=== PATIENT | male | born 1955 | race Caucasian/White ===

== ENCOUNTER 2018-10-14 08:02 | Day surgery (SDC) | payer OTHER ==
--- NOTE | 2018-10-14 10:31 | NUR ---
"DAY SURGERY RN | ADMIT Report from Mackenzie MALLORY. VSS. A/O. Denies pain and nausea. No issues at this time."
--- NOTE | 2018-10-14 11:05 | NUR ---
DAY SURGERY RN | CALL FROM SHANICE Mann NP called this RN and stated that after reviewing the patient chart, the patient was found to "have a small pneumothorax". She stated to this RN that patient will need an xray in "45 minutes or so" and that she would put in an order. No change in patient condition. VSS. A/O. Site is C/D/I.
--- NOTE | 2018-10-14 11:42 | NUR ---
"DAY SURGERY RN | Patient to Xray Discharge instructions given to patient. Xray came to get patient for follow-up xray. VSS. A/O. Site C/D/I. Denies pain and nausea."
--- NOTE | 2018-10-14 11:53 | NUR ---
"DAY SURGERY | DISCHARGE machine maintenance technician stated they discharged the patient to home at this time."
== END 2018-10-14 22:45 | disposition home or self-care (01) ==
LOC: CT 08:02
DX: C34.92 Malignant neoplasm of unspecified part of left bronchus or lung (principal); F17.200 Nicotine dependence, unspecified, uncomplicated
CPT/HCPCS: 32405; 71045; 77012; 88305

== ENCOUNTER 2019-06-26 06:08 | Day surgery (SDC) | payer OTHER ==
[~2019-06-26] VITALS: Ht 182.9 cm; Wt 63.7 kg
[~2019-06-26 06:08] MED LIST: ASPI81CH PO; B Complex-Foli1 EACH PO; VITAMIN D35000 UNIT PO
--- NOTE | 2019-06-26 06:40 | NUR ---
PT ADMITTED TO [facility]. AGREES WITH PLANNED SURGERY. LUNG SOUNDS DIMINSHED WITH FAINT EXPIRATORY WHEEZES ON LEFT.
--- NOTE | 2019-06-26 08:10 | NUR ---
06/26/19 0810 Nam Fry PROCEDURE CHANGED TO ANOSCOPE DUE TO RECTAL PROLAPSE, NO ANTIBIOTICS NEEDED
--- NOTE | 2019-06-26 09:57 | NUR ---
Discharge instructions reviewed with patient. Patient verbalizes understanding. Copy given to patient to take home. Patient States Post-Procedure ride home has been arranged.
== END 2019-06-26 11:44 | disposition home or self-care (01) ==
LOC: ORSCMMR 06:08 → ORD 07:30 → ORSCMMR 09:25
PROVIDERS: Surgery
PROC: 0DJD8ZZ Inspection of Lower Intestinal Tract, Via Natural or Artificial Opening Endoscopic (ICD-10-PCS; principal; 2019-06-26 07:30)
DX: K64.2 Third degree hemorrhoids (principal); K62.3 Rectal prolapse; J44.9 Chronic obstructive pulmonary disease, unspecified; E78.5 Hyperlipidemia, unspecified; F17.210 Nicotine dependence, cigarettes, uncomplicated; Z79.82 Long term (current) use of aspirin
CPT/HCPCS: J1100; J2250; J2405; J2704; J2710; J3010; J7120

== ENCOUNTER → 2023-07-03 | Outpatient (CLI) | payer OTHER ==
[2023-07-03 13:27] LABS: Creatinine, Urine Random 60.8 mg/dL (27.00-270.00)
[2023-07-03 13:29] LABS: Microalb/Creat Ratio UR, Rand 29.605 mg/g (0.000-30.000)
== END | disposition home or self-care (01) ==
LOC: LAB 06:30 → LAB SHORT 06:30
PROVIDERS: Family Medicine
DX: I10 Essential (primary) hypertension (principal)
CPT/HCPCS: 82043; 82570

== ENCOUNTER 2023-09-09 09:49 | Observation (INO) | payer OTHER ==
[~2023-09-09] VITALS: Ht 182.9 cm; Wt 57.1 kg
[2023-09-09 10:31] LABS: BASOPHILS ABSOLUTE AUTO 0.03 K/mm3 (0.00-0.23); BASOPHILS PERCENT AUTO 1 % (0-2); EOSINOPHILS ABSOLUTE AUTO 0.01 K/mm3 (0.00-0.68); EOSINOPHILS PERCENT AUTO 0 % (0-6); Hematocrit 44.6 % (37.0-53.0); Hemoglobin 15.2 g/dL (13.5-17.5); IMMATURE GRAN ABSOLUTE AUTO 0.02 K/mm3 (0.00-0.10); IMMATURE GRAN PERCENT AUTO 0 % (0-1); LYMPHOCYTES ABSOLUTE AUTO 0.75 K/mm3 (0.84-5.20); LYMPHOCYTES PERCENT AUTO 13 % (21-46); MONOCYTES ABSOLUTE AUTO 0.48 K/mm3 (0.16-1.47); MONOCYTES PERCENT AUTO 8 % (4-13); Mean Corpuscular HGB 32.1 pg (26.0-34.0); Mean Corpuscular HGB Conc 34.1 g/dL (31.5-36.5); Mean Corpuscular Volume 94 fL (80-100); Mean Platelet Volume 9.4 fL (9.1-12.4); NEUTROPHILS ABSOLUTE AUTO 4.73 K/mm3 (1.96-9.15); NEUTROPHILS PERCENT AUTO 79 % (41-73); Platelet Count 319 K/mm3 (150-400); RDW Coefficient Variation 13.5 % (11.7-14.2); RDW Standard Deviation 47.4 fL (35.1-46.3); Red Blood Cell Count 4.74 M/mm3 (4.30-5.90); White Blood Cell Count 6.02 K/mm3 (4.00-11.30)
[2023-09-09 10:50] LABS: Albumin, Blood 3.9 g/dL (3.4-5.0); Albumin/Globulin Ratio 1.1 (0.8-1.8); Bilirubin, Total 0.5 mg/dL (0.1-1.0); Calcium, Blood 9.1 mg/dL (8.5-10.1); Globulin, Blood 3.6 g/dL (2.2-4.0); Potassium, Blood 3.9 mmol/L (3.5-5.5); Total Protein, Blood 7.5 g/dL (6.4-8.2)
[2023-09-09 10:54] LABS: Influenza A, PCR NEGATIVE (NEGATIVE); Influenza B, PCR NEGATIVE (NEGATIVE); Resp Syncytial Virus, PCR NEGATIVE (NEGATIVE); SARS-Cov-2 (COVID-19) PCR, MMC NEGATIVE (NEGATIVE)
[2023-09-09] MEDS ORDERED: Incruse Ellipta 62.5 INH (11:08)
[2023-09-09] MEDS ORDERED: Ventolin/Prove6.7 GM INH (11:08)
[2023-09-09] MEDS ORDERED: LISI20 PO (11:09)
[2023-09-09 14:52] LABS: Base Excess Venous 1.3 mmol/L; Bicarbonate Venous 24.5 mmol/L (24.0-30.0); PCO2 Venous 48.1 mmHg (38-42); pH Blood Venous 7.36 (7.34-7.37)
[2023-09-09 16:16] VITALS: BP 181/98
--- NOTE | 2023-09-09 17:59 | NUR ---
SHIFT SUMMARY AOX4, SBA IN THE ROOM. AMBULATORY AT HOME BUT GET SOB WITH EXCERTION. HE IS ON RA, OXYGEN AVAILABLE IN THE ROOM FOR AMBULATION. NO COMPLAINTS SINCE THE ADMIT. HE CALLS AND CAN MAKE HIS NEEDS KNOWN. CALL LIGHT WITHIN REACH, BED IN THE LOWEST POSITION. WILL REPORT TO ONCOMING NURSE.
[2023-09-09 19:36] VITALS: BP 131/79
[2023-09-10 04:31] VITALS: BP 171/95
[2023-09-10 05:00] LABS: BASOPHILS PERCENT AUTO 0 % (0-2); EOSINOPHILS PERCENT AUTO 0 % (0-6); Hematocrit 40.2 % (37.0-53.0); Hemoglobin 13.8 g/dL (13.5-17.5); IMMATURE GRAN ABSOLUTE AUTO 0.02 K/mm3 (0.00-0.10); IMMATURE GRAN PERCENT AUTO 0 % (0-1); LYMPHOCYTES ABSOLUTE AUTO 0.58 K/mm3 (0.84-5.20); LYMPHOCYTES PERCENT AUTO 9 % (21-46); MONOCYTES ABSOLUTE AUTO 0.12 K/mm3 (0.16-1.47); MONOCYTES PERCENT AUTO 2 % (4-13); Mean Corpuscular HGB Conc 34.3 g/dL (31.5-36.5); Mean Corpuscular Volume 93 fL (80-100); Mean Platelet Volume 9.9 fL (9.1-12.4); NEUTROPHILS ABSOLUTE AUTO 5.57 K/mm3 (1.96-9.15); NEUTROPHILS PERCENT AUTO 89 % (41-73); Platelet Count 301 K/mm3 (150-400); RDW Coefficient Variation 13.4 % (11.7-14.2); RDW Standard Deviation 46.4 fL (35.1-46.3); Red Blood Cell Count 4.31 M/mm3 (4.30-5.90); White Blood Cell Count 6.29 K/mm3 (4.00-11.30)
[2023-09-10 05:23] LABS: Albumin, Blood 3.2 g/dL (3.4-5.0); Bilirubin, Total 0.4 mg/dL (0.1-1.0); Bun/Creatinine Ratio 27.8 (12.0-20.0); Calcium, Blood 9.3 mg/dL (8.5-10.1); Creatinine, Blood 0.94 mg/dL (0.60-1.20); Globulin, Blood 3.2 g/dL (2.2-4.0); Potassium, Blood 5.2 mmol/L (3.5-5.5); Total Protein, Blood 6.4 g/dL (6.4-8.2)
--- NOTE | 2023-09-10 06:47 | NUR ---
SHIFT SUMMARY: EBEN IS A&OX4. VSS, NO ACUTE EVENTS OVERNIGHT. IV TO R FOREARM PATENT, HE IS TOLERATING PO INTAKE WELL, INDEPENDENT IN THE ROOM, DENIES DIZZINESS, LIGHTHEADEDNESS OR UNSTEADINESS ON HIS FEET. PT IS CONTINENT OF BLADDER AND BOWEL. HE IS LYING IN BED WITH THE CALL LIGHT IN REACH. WILL REPORT TO ONCOMING SHIFT.
[2023-09-10 07:26] VITALS: BP 168/86
[2023-09-10] MEDS ORDERED: PRED20 PO (12:37)
[2023-09-10] MEDS ORDERED: FLUT1DIS2 INH (12:38)
--- NOTE | 2023-09-10 13:17 | NUR ---
DISCHARGE NOTE PT DISCHARGED TO HOME, MEDICATIONS SENT TO THE PHARMACY OF HIS CHOICE. DISCHARGE INFORMATION AND EDUCATION PROVIDED. IV REMOVED. PERSONAL BELONGINGS RETURNED.
== END 2023-09-10 13:20 | disposition home or self-care (01) ==
LOC: ER 09:49 → MEDS 09:50 → ENPENDDIS 09-10 11:05 → MEDS 09-10 13:20
PROVIDERS: Physician Assistant; ADMIT Internal Medicine
DX: J44.1 Chronic obstructive pulmonary disease with (acute) exacerbation (principal); J96.01 Acute respiratory failure with hypoxia; F10.20 Alcohol dependence, uncomplicated; E78.5 Hyperlipidemia, unspecified; Z72.0 Tobacco use; Z79.82 Long term (current) use of aspirin; Z79.899 Other long term (current) drug therapy; I10 Essential (primary) hypertension
CPT/HCPCS: 0241U; 36415; 71046; 80053; 82803; 85025; 93005; 93010; 94640; 94644; 94664; 94760; 96372; 96374; 96376; 99285-25; A9270; G0378; J1650; J2920; J7512

== ENCOUNTER → 2023-09-13 | Outpatient (CLI) | payer OTHER ==
[~2023-09-13] MED LIST changes: +FLUT1DIS2 INH; +Incruse Ellipta 62.5 INH; +LISI20 PO; +PRED20 PO; +Ventolin/Prove6.7 GM INH
[2023-09-13 19:14] LABS: Osmolality, Urine 512 mos/kg (15-1400)
[2023-09-13 19:30] LABS: Sodium, Urine, Random 34 mmol/L (20-110)
== END ==
LOC: LAB SHORT 17:38 → LAB 17:38
PROVIDERS: Family Medicine
DX: E87.1 Hypo-osmolality and hyponatremia (principal)
CPT/HCPCS: 83935; 84300